=== PATIENT | female | born 1970 | race Two or more races ===

== ENCOUNTER → 2021-03-26 09:31 | Outpatient (CLI) | payer OTHER, SELFPAY ==
--- NOTE | 2021-03-26 10:11 | MR_ITS ---
PROCEDURE: MR LUMBAR SPINE WO/W CON CLINICAL INDICATION: LOW BACK PAIN COMPARISON: No exams were available for comparison TECHNIQUE: Standard multiplanar multiecho sequences are performed without contrast. 3-D MIP and myelographic images are also rendered and reviewed FINDINGS: The spinal cord ends at the L1 level. L1-L2: Unremarkable. L2-L3: Unremarkable. L3-L4: Unremarkable. L4-5: Mild disc desiccation. L5-S1: There is grade 1 spondylitic spondylolisthesis of L5 on S1 by approximately 5 mm. Degenerative disc disease is present at that level. There is mild hypertrophic change at the pars defect. There is severe right foraminal narrowing and moderate left foraminal narrowing. Small amount fluid is present in the facet joints at L4-5. No extruded herniated disc or bony canal stenosis. IMPRESSION: 1. There is grade 1 spondylitic spondylolisthesis of L5 on S1 by approximately 5 mm. Degenerative disc disease is present at that level. There is mild hypertrophic change at the pars defect. There is severe right foraminal narrowing and moderate left foraminal narrowing at L5-S1. 2. No extruded herniated disc Dictated by: Moy Francois MD 03/27/2021 09:43 Moy Francois MD in [place] 03/27/2021 09:43
== END ==
PROVIDERS: PCP Nurse Practitioner Family; Visit Provider Nurse Practitioner Family
DX: Z12.31 Encounter for screening mammogram for malignant neoplasm of breast (principal); S33.2XXA Dislocation of sacroiliac and sacrococcygeal joint, initial encounter
CPT/HCPCS: 72158; 76376; A9576

== ENCOUNTER → 2021-04-01 11:08 | Outpatient (CLI) | payer OTHER, SELFPAY ==
--- NOTE | 2021-04-01 11:10 | MM_ITS ---
PROCEDURE INFORMATION: Exam: MG Bilateral Screening 3D Mammography Exam date and time: 04/01/2021 11:10 AM Age: 50 years old Clinical indication: Encounter for screening mammogram for malignant neoplasm of breast TECHNIQUE: Imaging protocol: Bilateral screening tomosynthesis and 2D mammography including computer-aided detection (CAD) when performed. COMPARISON: 1. MG DMSB DIG MAMM-SCREEN [facility] 09/06/2014 3:13 PM 2. MG DMDB DIG MAMM-DX [facility] 06/23/2013 2:06 PM FINDINGS: MAMMOGRAPHY: Breast composition: The breast tissue is composed of scattered areas of fibroglandular density. Mass: None. Architectural distortion: None. Calcifications: No suspicious calcifications. Asymmetric density: None. Skin thickening: None. Axillary adenopathy: None. IMPRESSION: No mammographic evidence of malignancy. Annual screening is recommended unless otherwise clinically indicated. ASSESSMENT: BI-RADS Category 1: Negative
== END ==
PROVIDERS: PCP Nurse Practitioner Family; Visit Provider Nurse Practitioner Family
DX: Z12.31 Encounter for screening mammogram for malignant neoplasm of breast (principal)
CPT/HCPCS: 77063; 77067

== ENCOUNTER → 2021-05-01 09:30 | Outpatient (POV) | payer OTHER, SELFPAY ==
[2021-05-01 09:53] VITALS: BP 189/90; PULSE 73; RESP 18; O2SAT 98; BMI 32.9
--- NOTE | 2021-05-01 12:01 | HMH.PMCON ---
Assessment and Plan (1) Bilateral sacroiliitis Status: Chronic Category: Medical Code(s): M46.1 - Sacroiliitis, not elsewhere classified (2) Lumbar spondylosis Status: Chronic Category: Medical Code(s): M47.816 - Spondylosis without myelopathy or radiculopathy, lumbar region - Assessment and plan all Dx Assessment and Plan for all problems:: Patient is very tender to palpation to her bilateral SI joints today. We will schedule her for bilateral SI joint injections. She does have a positive Kemps test as well with lumbar facet spondylosis and facet arthropathy per her MRI report. We will schedule her for the SI injections initially. If she gets significant relief and does not continue with pain we will follow-up with her as needed. If the pain is still present, we will likely need to proceed with facet joint injections at L5-S1 bilaterally. Patient is in agreement. We will continue her Flexeril 5 mg 1 tablet p.o. 3 times daily and start her on diclofenac 75 mg 1 tablet p.o. twice daily. She has been advised to use caution when taking diclofenac and not continue with other anti-inflammatories. Possible side effects of corticosteroids have been discussed with the patient. Risks and benefits of the procedure have been explained to the patient. Patient would like to proceed with the procedure. Patient has been instructed to contact the clinic with any concerns before the next appointment. Dr. Mattson has reviewed this note and agrees with this plan of care. This note was dictated using voice recognition software and make contain errors or omissions. HPI - Data of Consult Patient: new to practice Consult date: 05/01/21 Requesting Physician: Lydia Roth APRN - Consult Narrative Reason for consult: Low back pain History of present illness: Ms. Almanza is a 50 year old female who presents today with accompanied daughter. The patient is mainly Tajik-speaking. She does have her daughter at bedside to interpret. The patient's daughter is age 18. Patient reports that she had a fall approximately 2 months ago. She was walking up stairs and fell. Since her fall, she has had burning sensation as well as pain into bilateral low back area and bilateral buttock. She does say that the pain has progressively worsened since the 2 months. She says that sitting and standing or when the pain around it is worse. She does have to reposition often with sitting. She also says that bending forward does cause pain. She does have imaging of her lumbar spine. She is tender to palpation to her low back area today. She has tried physical therapy for more than 6 weeks in the past and continues with home stretching. She was taking [id number] anti-inflammatories with minimal relief and has tried ice and heat therapies. She was referred to us today for possible injective therapy. She has been taking a muscle relaxant which has given her relief, but she is now out of the medicine. Per the daughter, the patient was given the medication by her primary care provider. She does rate her pain a 7 or an 8 out of 10 today. She does reposition often in the chair. CC: Lydia Roth APRN [facility] History I have reviewed the patient's past medical history: Yes Medical History: Reports:: Hypertension Denies:: Diabetes Mellitus Type 1, Diabetes Mellitus Type 2 *Have you ever received a pneumonia vaccine?: No *Have you received a flu vaccine this season?: Yes - *Social History Last grade of school completed: None Smoking Status: Never smoker Alcohol Intake: never *Occupational Status:: employed *Travel in the last 8 weeks: None Family Hx:: Non-contributory Review of Systems - Review of Systems Review of Systems General: No recent weight changes, no fever, no sleep disturbances Respiratory: No cough, no shortness of air, no recurring pulmonary infections Cardiovascular/peripheral vascular: No chest pain, no palpitations
== END ==
PROVIDERS: Visit Provider Clinical Nurse Specialist Family Health
DX: M46.1 Sacroiliitis, not elsewhere classified (principal); M47.816 Spondylosis without myelopathy or radiculopathy, lumbar region
CPT/HCPCS: 99202; G0463

== ENCOUNTER 2021-05-07 10:36 | Day surgery (SDC) | payer OTHER, SELFPAY ==
[2021-05-07 10:42] VITALS: BP 139/93; PULSE 69; RESP 20; TEMP 36.4; O2SAT 99; BMI 35.2
[2021-05-07 11:09] VITALS: BP 164/82; PULSE 66; RESP 18; O2SAT 99
[2021-05-07 11:10] VITALS: BP 143/88; PULSE 65; RESP 18; O2SAT 99
--- NOTE | 2021-05-07 11:13 | HMH.PMPROC ---
- Procedure Date: 05/07/21 Time: 11:13 Anesthesiologist:: Jose Mattson MD Complications:: None Pre-procedure Diagnosis:: Sacroiliitis Post-procedure Diagnosis:: Same Indications for Procedure:: Patient is a pleasant 50-year-old white female who we are treating for bilateral hip pain. She is tender over both SI joints. She is positive Urban's test bilaterally. She is positive Scout test bilaterally. She is positive SI joint compression test bilaterally. She has a positive distraction test bilaterally. We will plan on bilateral SI joint injections under fluoroscopy today to help with pain symptoms. Procedure Details:: B/L SI joint injection under fluoroscopy Informed consent was obtained and the risks and benefits of the procedure was explained to the patient. The patient was taken to the procedure room and placed prone on the procedure table. The patient was prepped using ChloraPrep. The skin and subcutaneous tissues overlying the SI joints were anesthetized using lidocaine. I placed a 22-gauge needle first in the left SI joint and second in the right SI joint. Needle placement was confirmed with dye. After this we injected 5 mL bupivacaine 0.25% and Depo-Medrol 40 mg into each SI joint. Patient tolerated the procedure well with no complication. Plan and Disposition:: Follow-up with this patient in 2 weeks. Will reevaluate symptoms at that time.
[2021-05-07 11:21] VITALS: BP 149/80; PULSE 64; RESP 20; O2SAT 98
== END 2021-05-07 11:22 | disposition home or self-care (01) ==
LOC: SC.PAINP 10:38
PROVIDERS: Visit Provider Anesthesiology
DX: M46.1 Sacroiliitis, not elsewhere classified (principal); I10 Essential (primary) hypertension
CPT/HCPCS: 27096; G0260; J1040; Q9966